=== PATIENT | male | born 1975 | race Two or more races ===

== ENCOUNTER 2025-01-16 14:04 | Emergency (ER) | payer OTHER ==
[~2025-01-16] VITALS: Ht 170.2 cm; Wt 77.1 kg
[2025-01-16] MEDS ORDERED: JARDIANCE10 MG PO (14:48)
[2025-01-16] MEDS ORDERED: LIPITOR20 MG (14:48)
[2025-01-16] MEDS ORDERED: KETOROLAC TROMETHAMINE 30 MG VIAL IM ONE (16:45)
[2025-01-16] MEDS ORDERED: CEFTRIAXONE SODIUM 1,000 MG VIAL IM ONE (16:45)
[2025-01-16] MEDS ORDERED: DEXAMETHASONE SODIUM PHOSPHATE 4 MG/ML VIAL IM ONE (16:45)
[2025-01-16] MEDS ORDERED: AMOX-CLAV 875-1 EAC1 PO (16:45)
[2025-01-16] MEDS ORDERED: CEFTRIAXONE SODIUM 1,000 MG VIAL ONE (16:58)
[2025-01-16] MEDS ORDERED: DEXAMETHASONE SODIUM PHOSPHATE 4 MG/ML VIAL ONE (16:58)
[2025-01-16] MEDS ORDERED: LIDOCAINE HCL 1% 10ML VIAL ONE (16:58)
[2025-01-16] MEDS ORDERED: KETOROLAC TROMETHAMINE 30 MG VIAL ONE (16:58)
== END 2025-01-16 18:01 | disposition home or self-care (01) ==
LOC: ER 14:05
DX: J03.80 Acute tonsillitis due to other specified organisms (principal); I12.9 Hypertensive chronic kidney disease with stage 1 through stage 4 chronic kidney disease, or unspecified chronic kidney disease; N18.9 Chronic kidney disease, unspecified